=== PATIENT | male | born 1990 | race Caucasian/White ===

== ENCOUNTER 2019-01-10 14:54 | Emergency (ER) | payer OTHER, MEDICAID ==
[~2019-01-10] VITALS: Ht 193 cm; Wt 118.2 kg
[2019-01-10 14:57] VITALS: BP 138/76
[2019-01-10] MEDS ORDERED: ibuprofen 200mg tablet PO ONE (15:25)
[2019-01-10] MEDS ORDERED: HYDR-3965 PO (15:55)
--- NOTE | 2019-01-10 16:10 | NUR ---
PT'S PAIN CONTROLLED. ICE PROVIDED AND SLING APPLIED WITH EDUCATION. PT VERBALIZED UNDERSTANDING.
== END 2019-01-10 16:15 | disposition home or self-care (01) ==
LOC: ER 14:54
DX: S49.82XA Other specified injuries of left shoulder and upper arm, initial encounter (principal); Z79.899 Other long term (current) drug therapy; V43.52XA Car driver injured in collision with other type car in traffic accident, initial encounter; Y93.89 Activity, other specified; Y92.488 Other paved roadways as the place of occurrence of the external cause; Y99.8 Other external cause status
CPT/HCPCS: 73030; 99283